=== PATIENT | male | born 1990 | race Caucasian/White ===

== ENCOUNTER 2021-03-10 | Inpatient (IN) | payer MEDICAID, SELFPAY ==
[~2021-03-10] VITALS: Ht 182.9 cm; Wt 77.3 kg
[2021-03-10] MEDS ORDERED: diphenhydrAMINE 50MG/ML VIAL (J1200) IM STA (00:22)
[2021-03-10] MEDS ORDERED: HALOPERIDOL 5MG/ML VIAL (J1630 PER 1) IM STA (00:22)
[2021-03-10] MEDS ORDERED: LORazepam 2 MG/ML VIAL IM STA (00:22)
[2021-03-10] MEDS ORDERED: HALOPERIDOL 5MG/ML VIAL (J1630 PER 1) As Ordered ONE (00:23)
[2021-03-10] MEDS ORDERED: diphenhydrAMINE 50MG/ML VIAL (J1200) As Ordered ONE (00:23)
[2021-03-10] MEDS ORDERED: LORazepam 2 MG/ML VIAL As Ordered ONE (00:24)
[2021-03-10 00:58] LABS: HEMATOCRIT 44.1 % (42.0-52.0); HEMOGLOBIN 14.9 g/dl (13.5-17.5); MEAN CORPUSCULAR HEMOGLOBIN 30.5 pg (27.0-33.0); MEAN CORPUSCULAR HGB CONC 33.8 g/dl (32.0-36.5); MEAN CORPUSCULAR VOLUME 90.4 fl (80.0-96.0); PLATELET COUNT, AUTOMATED 375 10^3/uL (150-450); RED BLOOD COUNT 4.88 10^6/uL (4.30-6.10); WHITE BLOOD COUNT 14.8 10^3/uL (4.0-10.0)
[2021-03-10 01:30] LABS: ACETAMINOPHEN LEVEL < 2.0 UG/ML (10.0-30.0); ALBUMIN 4.7 GM/DL (3.2-5.2); ALT/SGPT 44 U/L (12-78); BILIRUBIN,DIRECT < 0.1 MG/DL (0.0-0.2); BILIRUBIN,TOTAL 0.3 MG/DL (0.2-1.0); BLOOD UREA NITROGEN 12 MG/DL (7-18); CALCIUM LEVEL 9.9 MG/DL (8.5-10.1); CARBON DIOXIDE LEVEL 26 MEQ/L (21-32); CHLORIDE LEVEL 96 MEQ/L (98-107); CREATININE FOR GFR 0.94 MG/DL (0.70-1.30); ETHYL ALCOHOL (ETHANOL) 0.265 % (0.000-0.010); GLOMERULAR FILTRATION RATE > 60.0 (>60); GLUCOSE, FASTING 112 MG/DL (70-100); POTASSIUM SERUM 3.7 MEQ/L (3.5-5.1); SALICYLATE LEVEL < 1.7 MG/DL (5.0-30.0); SODIUM LEVEL 133 MEQ/L (136-145); TOTAL PROTEIN 8.2 GM/DL (6.4-8.2)
[2021-03-10 02:16] LABS: RSV AMPLIFICATION NEGATIVE (NEGATIVE)
[2021-03-10 05:50] LABS: AMPHETAMINES LEVEL URINE NEGATIVE (NEGATIVE); BARBITURATES URINE NEGATIVE (NEGATIVE); BENZODIAZEPINES URINE NEGATIVE (NEGATIVE); CANNABINOIDS URINE NEGATIVE (NEGATIVE); COCAINE METABOLITE URINE NEGATIVE (NEGATIVE); METHADONE URINE NEGATIVE (NEGATIVE); OPIATES URINE NEGATIVE (NEGATIVE); PHENCYCLIDINE URINE NEGATIVE (NEGATIVE)
[2021-03-10] MEDS ORDERED: LORazepam 2 MG TAB PO PRN (15:55)
[2021-03-10] MEDS ORDERED: MAALOX 30 ML SUSP *UDC PO PRN (15:55)
[2021-03-10] MEDS ORDERED: MOM 30ML SUSPENSION UDC PO PRN (15:55)
[2021-03-10] MEDS ORDERED: HOME MED LIST COMPLETE! XX SCH (16:50)
[2021-03-10 17:12] VITALS: BP 135/79
[2021-03-10] MEDS: FOLIC ACID 1 MG TAB PO SCH (17:53)
[2021-03-10] MEDS: MULTIVITAMINS/MINERALS THERAP 1 TAB PO SCH (17:54)
[2021-03-10] MEDS: THIAMINE 100 MG TAB PO SCH (18:09)
[2021-03-10 20:57] VITALS: BP 135/79
[2021-03-10] MEDS: traZODone 50 MG TAB PO PRN (21:14)
[2021-03-11 06:10] VITALS: BP 122/57
[2021-03-11 06:14] VITALS: BP 122/57
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
[2021-03-11] MEDS: MULTIVITAMINS/MINERALS THERAP 1 TAB PO SCH (10:48)
[2021-03-11] MEDS: FOLIC ACID 1 MG TAB PO SCH (10:48)
[2021-03-11] MEDS: THIAMINE 100 MG TAB PO SCH ×2 (10:48→20:14)
[2021-03-11] MEDS: NICOTINE 21MG/24HR 1 EA TRANSDERMAL TD PRN (14:37)
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
[2021-03-11 18:00] VITALS: BP 125/78
[2021-03-11] MEDS: traZODone 50 MG TAB PO PRN (20:14)
[2021-03-11] MEDS: SERTRALINE HCL 25 MG TABLET PO SCH (20:14)
[2021-03-11] MEDS: ACETAMINOPHEN TAB 650MG DOSE (2X325MG) PO PRN (20:15)
[2021-03-12 06:24] VITALS: BP 127/71
[2021-03-12] MEDS: FOLIC ACID 1 MG TAB PO SCH (09:08)
[2021-03-12] MEDS: MULTIVITAMINS/MINERALS THERAP 1 TAB PO SCH (09:09)
[2021-03-12] MEDS: THIAMINE 100 MG TAB PO SCH ×2 (09:09→20:16)
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
[2021-03-12] MEDS: NICOTINE 21MG/24HR 1 EA TRANSDERMAL TD PRN (11:27)
[2021-03-12] MEDS: hydrOXYzine 50 MG TAB PO PRN ×2 (12:43→20:15)
[2021-03-12] MEDS: QUEtiapine FUMARATE 100 MG TAB PO PRN (20:15)
[2021-03-12] MEDS: SERTRALINE HCL 25 MG TABLET PO SCH (20:15)
[2021-03-12] MEDS: ACETAMINOPHEN TAB 650MG DOSE (2X325MG) PO PRN (20:18)
[2021-03-12 20:34] VITALS: BP 139/77
[2021-03-13 06:00] VITALS: BP 116/69
[2021-03-13] MEDS: NICOTINE 21MG/24HR 1 EA TRANSDERMAL TD PRN (12:52)
[2021-03-13] MEDS: hydrOXYzine 50 MG TAB PO PRN (12:52)
[2021-03-13] MEDS: ACETAMINOPHEN TAB 650MG DOSE (2X325MG) PO PRN (17:51)
[2021-03-13 18:00] VITALS: BP 131/60
[2021-03-13] MEDS: SERTRALINE HCL 25 MG TABLET PO SCH (20:19)
[2021-03-13] MEDS: QUEtiapine FUMARATE 100 MG TAB PO PRN (20:19)
--- NOTE | 2021-03-13 22:24 | MHIPNPDOC ---
[facility] Progress Note Progress Note DATE OF SERVICE: 03/13/21 HISTORY: Patient is a 30 -year-old Single, Unemployed, , male, who is admitted for his suicidal ideation and planning to crash his car into a tree. He endorses depression and suicidal thoughts. He reports recent stressors of losing his job, breaking up with his girlfriend 3 days ago and has been couch surfing with friends since then. He also admits to significant alcohol use. States he drinks at least a 15 pack of beer daily. If not beer he drinks half to a full bottle of whiskey daily. Patient reports financial stressors, limited to no supports growing up and currently, struggling with depression and suicidal ideations most of his life. Patient is hopeful for referral to rehab and is requesting a financial reporting analyst for establishing insurance for himself PER ED REPORT: Pt self-presented to the ED intoxicated, reporting "I shouldn't be here that would make it better for everyone else" and was complaining of "not feeling like himself." Pt reports he "was feeling pretty down and I guess suicidal yesterday" which is what prompted him to come to the ED. Pt reports "bojessiee is just delia ruining my life" reporting that he is an alcoholic and has been drinking 15 plus beers or 1/2-1 bottle of liquor daily for 5+ years. Pt reports drinking affects his sleep and appetite, stating he doesn't eat when he drinks and is unable to sleep if he is not drinking. Pt also reports his mood is down, energy is low, and he lacks interests and enjoyment. Pt reports his drinking has led him to recently lose his [employer] job leading to financial stressors. Pt reports he had a gf for 9 months he was residing with but that they recently broke up, and pt. is now couch surfing at different friends houses. Pt states he and his ex gf are both alcoholics, therefore they fought often. Pt reports he has always felt lonely and had minimal support, as pt. was in the foster system until he was old enough to age out. Pt reports he was also often sent to residential facilities while in foster care due to his behaviors. Pt reports no self-harm/hi/ah/vh. Pt reports he's been struggling with s/i on and off all of his life but that he recently has had increasing suicidal thoughts for a few months now. Pt reports the thoughts were the worst yesterday and pt. reports he is still feeling suicidal with a plan to crash his vehicle into a tree going 90mph. Pt reports he is an alcohol and that he drinks every night, sometimes starting drinking earlier in the day. Pt reports he drinks 15 or more beers a day or night, and states if he is drinking liquor instead, he consumes 1/2 to 1 whole bottle of liquor. Pt reports he has been drinking like this for over 5 years. He reports he's been to detox and treatment at [facility] before but several years ago as a teenager. Pt reports a Hx of recreational drug abuse including opioids but denies any recent use, stating he hasn't used in several years. Pt's toxicology report was negative, corroborating pt.s statement. Pt has an apartment with his gf, however pt. reports he has recently been couch surfing at friends, because during their last argument, pt. reports his s/o told him to leave, so pt. left and has not returned. INTERVAL HISTORY: Denies complaints today. Seen in his room laying in bed, reading a book. Did note that 50mg of hydroxyzine seemed too potent after he took it in the morning and that he was struggling with staying awake for the first half of the day. Otherwise feels that his medication changes have been good and feels that he needs no other changes than a lower dose of hydroxyzine PRN. VITAL SIGNS: See below. NEW TEST RESULTS: None CURRENT MEDICATIONS: See below. MENTAL STATUS EXAMINATION: Patient is a 30 -year-old Single, Unemployed, , male, who is admitted for his suicidal ideation and planning to crash his car into a tree. He endorses depression and suicidal thoughts. He reports recent stressors of losing his job, breaking up with his girlfriend 3 days ago and has been couch surfing with friends since then General Appearance: unkempt, disheveled, hospital scrubs/clothing Build: average Demeanor: neutral/calm Eye Contact: fair Activity: relaxed Behavior: cooperative, withdrawn Speech: slow, low in volume Mood: depressed, anxious Affect: flat Thought Process: logical/linear Thought Content (Delusions): none reported Thought Content (Other): none reported Thought Content (Aggressive): none reported Perception (Hallucinations): none reported Perception (Other): none reported Cognition (Impairment of): none reported Cognition(Intelligence Est.): average Oriented: Awake, Alert, Oriented times three Insight: fair Judgment: Fair Psychosis: Denies DIAGNOSES: Major depressive disorder, single episode, moderate Alcohol use disorder, severe Nicotine use disorder History of stimulant use Cannabis use disorder History of methamphetamine use disorder ASSESSMENT: Denies any withdrawal symptoms but states that initial dose of hydroxyzine was too strong. Requests a lower dose but feels that other changes previously made have worked well for his sleep. MANAGEMENT PLAN: PRN hydroxyzine decreased to 25mg TIME SPENT: 15 minutes. Vital Signs Vital Signs Date Time Temp Pulse Resp B/P (MAP) Pulse Ox O2 Delivery O2 Flow Rate FiO2 03/13/21 18:00 97.9 72 16 131/60 (83) 03/13/21 08:55 Room Air 03/13/21 06:00 97 03/12/21 09:41 3.0 Current Medications Current Medications Medications (Trade) Dose Ordered Sig/Tony Route PRN Reason Start Time Stop Time Status Last Admin Dose Admin Acetaminophen (Tylenol Tab) 650 mg Q6HP PRN PO HEADACHE or MILD DISCOMFORT 03/10/21 15:55 03/13/21 17:51 Al Hydrox/Mg Hydrox/Simethicone (Mylanta) 30 ml Q4HP PRN PO HEARTBURN/INDIGESTION 03/10/21 15:55 Diphenhydramine HCl (Benadryl) 50 mg STAT STAT IM 03/10/21 00:22 03/10/21 00:24 DC 03/10/21 00:38 Folic Acid (Folic Acid) 1 mg DAILY PO 03/10/21 09:00 03/13/21 01:08 DC 03/12/21 09:08 Haloperidol (Haldol) 5 mg STAT STAT IM 03/10/21 00:22 03/10/21 00:24 DC 03/10/21 00:37 Home Med (Home Med List Complete!) ASDIRECTED XX 03/10/21 16:50 03/10/21 16:49 DC Hydroxyzine HCl (Atarax) 25 mg Q6HP PRN PO ANXIETY/AGITATION 03/13/21 16:15 Hydroxyzine HCl (Atarax) 50 mg Q6HP PRN PO ANXIETY/AGITATION 03/11/21 09:10 03/13/21 16:13 DC 03/13/21 12:52 Lorazepam (Ativan) 2 mg ASDIRECTED PRN PO SEE PROTOCOL 03/10/21 15:55 Cancel Lorazepam (Ativan) 2 mg STAT STAT IM 03/10/21 00:22 03/10/21 00:24 DC 03/10/21 00:38 Magnesium Hydroxide (Milk Of Magnesia) 30 ml DAILYPRN PRN PO CONSTIPATION 03/10/21 15:55 Multivitamins (Theragram-M) 1 tab DAILY PO 03/10/21 09:00 03/13/21 01:08 DC 03/12/21 09:09 Nicotine (Nicoderm Cq 21mg) 1 patch DAILYPRN PRN TD NICOTINE WITHDRAWAL 03/11/21 09:10 03/13/21 12:52 Quetiapine Fumarate (SEROquel) 100 mg QHSP PRN PO INSOMNIA 03/12/21 10:45 03/13/21 20:19 Sertraline HCl (Zoloft) 25 mg QHS PO 03/11/21 21:00 03/13/21 20:19 Thiamine HCl (Thiamine HCl) 100 mg BID PO 03/10/21 17:00 03/13/21 01:08 DC 03/12/21 20:16 Trazodone HCl (Desyrel) 50 mg QHSP PRN PO INSOMNIA 03/10/21 15:55 03/12/21 10:44 DC 03/11/21 20:14 Allergies Coded Allergies: No Known Allergies (Unverified , 03/10/21) JACOB PAULINO MD Mar 13, 2021 22:24
[2021-03-14 06:43] VITALS: BP 114/70
--- NOTE | 2021-03-14 12:10 | MHIPNPDOC ---
[facility] Progress Note Progress Note DATE OF SERVICE: 03/14/21 HISTORY: Patient is a 30 -year-old Single, Unemployed, , male, who is admitted for his suicidal ideation and planning to crash his car into a tree. He endorses depression and suicidal thoughts. He reports recent stressors of losing his job, breaking up with his girlfriend 3 days ago and has been couch surfing with friends since then. He also admits to significant alcohol use. States he drinks at least a 15 pack of beer daily. If not beer he drinks half to a full bottle of whiskey daily. Patient reports financial stressors, limited to no supports growing up and currently, struggling with depression and suicidal ideations most of his life. Patient is hopeful for referral to rehab and is requesting a financial operations consultant for establishing insurance for himself PER ED REPORT: Pt self-presented to the ED intoxicated, reporting "I shouldn't be here that would make it better for everyone else" and was complaining of "not feeling like himself." Pt reports he "was feeling pretty down and I guess suicidal yesterday" which is what prompted him to come to the ED. Pt reports "bojessiee is just delia ruining my life" reporting that he is an alcoholic and has been drinking 15 plus beers or 1/2-1 bottle of liquor daily for 5+ years. Pt reports drinking affects his sleep and appetite, stating he doesn't eat when he drinks and is unable to sleep if he is not drinking. Pt also reports his mood is down, energy is low, and he lacks interests and enjoyment. Pt reports his drinking has led him to recently lose his [employer] job leading to financial stressors. Pt reports he had a gf for 9 months he was residing with but that they recently broke up, and pt. is now couch surfing at different friends houses. Pt states he and his ex gf are both alcoholics, therefore they fought often. Pt reports he has always felt lonely and had minimal support, as pt. was in the foster system until he was old enough to age out. Pt reports he was also often sent to residential facilities while in foster care due to his behaviors. Pt reports no self-harm/hi/ah/vh. Pt reports he's been struggling with s/i on and off all of his life but that he recently has had increasing suicidal thoughts for a few months now. Pt reports the thoughts were the worst yesterday and pt. reports he is still feeling suicidal with a plan to crash his vehicle into a tree going 90mph. Pt reports he is an alcohol and that he drinks every night, sometimes starting drinking earlier in the day. Pt reports he drinks 15 or more beers a day or night, and states if he is drinking liquor instead, he consumes 1/2 to 1 whole bottle of liquor. Pt reports he has been drinking like this for over 5 years. He reports he's been to detox and treatment at [facility] before but several years ago as a teenager. Pt reports a Hx of recreational drug abuse including opioids but denies any recent use, stating he hasn't used in several years. Pt's toxicology report was negative, corroborating pt.s statement. Pt has an apartment with his gf, however pt. reports he has recently been couch surfing at friends, because during their last argument, pt. reports his s/o told him to leave, so pt. left and has not returned. INTERVAL HISTORY: Laying in bed resting today, woke up early when spoken to. No complaints at this time, however has not utilized the lower dose of hydroxyzine. Provide education to him about this to reinforce the idea that if he needed it the dose below her that we would see if this resolves his anxiety or of an alternative agent be needed VITAL SIGNS: See below. NEW TEST RESULTS: None CURRENT MEDICATIONS: See below. MENTAL STATUS EXAMINATION: Patient is a 30 -year-old Single, Unemployed, , male, who is admitted for his suicidal ideation and planning to crash his car into a tree. He endorses depression and suicidal thoughts. He reports recent stressors of losing his job, breaking up with his girlfriend 3 days ago and has been couch surfing with friends since then General Appearance: unkempt, disheveled, hospital scrubs/clothing Build: average Demeanor: neutral/calm Eye Contact: fair Activity: relaxed Behavior: cooperative, withdrawn Speech: slow, low in volume Mood: depressed, anxious Affect: flat Thought Process: logical/linear Thought Content (Delusions): none reported Thought Content (Other): none reported Thought Content (Aggressive): none reported Perception (Hallucinations): none reported Perception (Other): none reported Cognition (Impairment of): none reported Cognition(Intelligence Est.): average Oriented: Awake, Alert, Oriented times three Insight: fair Judgment: Fair Psychosis: Denies DIAGNOSES: Major depressive disorder, single episode, moderate Alcohol use disorder, severe Nicotine use disorder History of stimulant use Cannabis use disorder History of methamphetamine use disorder ASSESSMENT: Denies any issues medications at this time, however has not utilized the lower dose of hydroxyzine. Provide education to him about the change in medication dosing reminded him that if it was needed he would be able to utilize it if he felt anxious. Otherwise denies any complaints and felt that he was stable at this time. MANAGEMENT PLAN: Continue current medications. Continue discharge planning. TIME SPENT: 10 minutes. Vital Signs Vital Signs Date Time Temp Pulse Resp B/P (MAP) Pulse Ox O2 Delivery O2 Flow Rate FiO2 03/14/21 10:16 Room Air 03/14/21 06:43 98.0 77 16 114/70 (85) 99 03/12/21 09:41 3.0 Current Medications Current Medications Medications (Trade) Dose Ordered Sig/Tony Route PRN Reason Start Time Stop Time Status Last Admin Dose Admin Acetaminophen (Tylenol Tab) 650 mg Q6HP PRN PO HEADACHE or MILD DISCOMFORT 03/10/21 15:55 03/13/21 17:51 Al Hydrox/Mg Hydrox/Simethicone (Mylanta) 30 ml Q4HP PRN PO HEARTBURN/INDIGESTION 03/10/21 15:55 Diphenhydramine HCl (Benadryl) 50 mg STAT STAT IM 03/10/21 00:22 03/10/21 00:24 DC 03/10/21 00:38 Folic Acid (Folic Acid) 1 mg DAILY PO 03/10/21 09:00 03/13/21 01:08 DC 03/12/21 09:08 Haloperidol (Haldol) 5 mg STAT STAT IM 03/10/21 00:22 03/10/21 00:24 DC 03/10/21 00:37 Home Med (Home Med List Complete!) ASDIRECTED XX 03/10/21 16:50 03/10/21 16:49 DC Hydroxyzine HCl (Atarax) 25 mg Q6HP PRN PO ANXIETY/AGITATION 03/13/21 16:15 Hydroxyzine HCl (Atarax) 50 mg Q6HP PRN PO ANXIETY/AGITATION 03/11/21 09:10 03/13/21 16:13 DC 03/13/21 12:52 Lorazepam (Ativan) 2 mg ASDIRECTED PRN PO SEE PROTOCOL 03/10/21 15:55 Cancel Lorazepam (Ativan) 2 mg STAT STAT IM 03/10/21 00:22 03/10/21 00:24 DC 03/10/21 00:38 Magnesium Hydroxide (Milk Of Magnesia) 30 ml DAILYPRN PRN PO CONSTIPATION 03/10/21 15:55 Multivitamins (Theragram-M) 1 tab DAILY PO 03/10/21 09:00 03/13/21 01:08 DC 03/12/21 09:09 Nicotine (Nicoderm Cq 21mg) 1 patch DAILYPRN PRN TD NICOTINE WITHDRAWAL 03/11/21 09:10 03/13/21 12:52 Quetiapine Fumarate (SEROquel) 100 mg QHSP PRN PO INSOMNIA 03/12/21 10:45 03/13/21 20:19 Sertraline HCl (Zoloft) 25 mg QHS PO 03/11/21 21:00 03/13/21 20:19 Thiamine HCl (Thiamine HCl) 100 mg BID PO 03/10/21 17:00 03/13/21 01:08 DC 03/12/21 20:16 Trazodone HCl (Desyrel) 50 mg QHSP PRN PO INSOMNIA 03/10/21 15:55 03/12/21 10:44 DC 03/11/21 20:14 Allergies Coded Allergies: No Known Allergies (Unverified , 03/10/21) JACOB PAULINO MD Mar 14, 2021 12:10
[2021-03-14] MEDS ORDERED: ANALGESIC BALM CRM 3OZ TOP PRN (12:35)
[2021-03-14] MEDS: NICOTINE 21MG/24HR 1 EA TRANSDERMAL TD PRN (12:41)
[2021-03-14] MEDS: hydrOXYzine 25 MG TAB PO PRN ×2 (12:42→23:01)
[2021-03-14] MEDS: IBUPROFEN 600MG TAB PO PRN ×2 (14:04→20:14)
[2021-03-14 18:54] VITALS: BP 116/75
[2021-03-14] MEDS: QUEtiapine FUMARATE 100 MG TAB PO PRN (20:12)
[2021-03-14] MEDS: SERTRALINE HCL 25 MG TABLET PO SCH (20:12)
[2021-03-15 06:43] VITALS: BP 104/53
[2021-03-15] MEDS: IBUPROFEN 600MG TAB PO PRN ×2 (11:38→20:16)
[2021-03-15] MEDS: NICOTINE 21MG/24HR 1 EA TRANSDERMAL TD PRN (11:38)
--- NOTE | 2021-03-15 12:57 | MHIPNPDOC ---
[facility] Progress Note Progress Note DATE OF SERVICE: 03/15/21 HISTORY: Patient is a 30 -year-old Single, Unemployed, , male, who is admitted for his suicidal ideation and planning to crash his car into a tree. He endorses depression and suicidal thoughts. He reports recent stressors of losing his job, breaking up with his girlfriend 3 days ago and has been couch surfing with friends since then. He also admits to significant alcohol use. States he drinks at least a 15 pack of beer daily. If not beer he drinks half to a full bottle of whiskey daily. Patient reports financial stressors, limited to no supports growing up and currently, struggling with depression and suicidal ideations most of his life. Patient is hopeful for referral to rehab and is requesting a financial economist for establishing insurance for himself PER ED REPORT: Pt self-presented to the ED intoxicated, reporting "I shouldn't be here that would make it better for everyone else" and was complaining of "not feeling like himself." Pt reports he "was feeling pretty down and I guess suicidal yesterday" which is what prompted him to come to the ED. Pt reports "bojessiee is just delia ruining my life" reporting that he is an alcoholic and has been drinking 15 plus beers or 1/2-1 bottle of liquor daily for 5+ years. Pt reports drinking affects his sleep and appetite, stating he doesn't eat when he drinks and is unable to sleep if he is not drinking. Pt also reports his mood is down, energy is low, and he lacks interests and enjoyment. Pt reports his drinking has led him to recently lose his [employer] job leading to financial stressors. Pt reports he had a gf for 9 months he was residing with but that they recently broke up, and pt. is now couch surfing at different friends houses. Pt states he and his ex gf are both alcoholics, therefore they fought often. Pt reports he has always felt lonely and had minimal support, as pt. was in the foster system until he was old enough to age out. Pt reports he was also often sent to residential facilities while in foster care due to his behaviors. Pt reports no self-harm/hi/ah/vh. Pt reports he's been struggling with s/i on and off all of his life but that he recently has had increasing suicidal thoughts for a few months now. Pt reports the thoughts were the worst yesterday and pt. reports he is still feeling suicidal with a plan to crash his vehicle into a tree going 90mph. Pt reports he is an alcohol and that he drinks every night, sometimes starting drinking earlier in the day. Pt reports he drinks 15 or more beers a day or night, and states if he is drinking liquor instead, he consumes 1/2 to 1 whole bottle of liquor. Pt reports he has been drinking like this for over 5 years. He reports he's been to detox and treatment at [facility] before but several years ago as a teenager. Pt reports a Hx of recreational drug abuse including opioids but denies any recent use, stating he hasn't used in several years. Pt's toxicology report was negative, corroborating pt.s statement. Pt has an apartment with his gf, however pt. reports he has recently been couch surfing at friends, because during their last argument, pt. reports his s/o told him to leave, so pt. left and has not returned. VITAL SIGNS: See below. NEW TEST RESULTS: None CURRENT MEDICATIONS: See below. MENTAL STATUS EXAMINATION: Patient is a 30 -year-old Single, Unemployed, , male, who is admitted for his suicidal ideation and planning to crash his car into a tree. He endorses depression and suicidal thoughts. He reports recent stressors of losing his job, breaking up with his girlfriend 3 days ago and has been couch surfing with friends since then General Appearance: well kempt, hospital scrubs/clothing Build: average Demeanor: withdrawn, guarded Eye Contact: fair Activity: anxious Behavior: cooperative, withdrawn Speech: Normal rate tone and volume Mood: depressed, minimally anxious Affect: flat Thought Process: logical/linear Thought Content (Delusions): none reported Thought Content (Other): none reported Thought Content (Aggressive): none reported Perception (Hallucinations): none reported Perception (Other): none reported Cognition (Impairment of): none reported Cognition(Intelligence Est.): average Oriented: Awake, Alert, Oriented times three Insight: fair Judgment: Fair Psychosis: Denies DIAGNOSES: Major depressive disorder, single episode, moderate Alcohol use disorder, severe Nicotine use disorder History of stimulant use Cannabis use disorder History of methamphetamine use disorder ASSESSMENT: Found sleeping in his room. Reports no withdrawal symptoms, has mild depression and anxiety. States that his sleep has not improved and that the hydroxyzine was lowered and was effective. He had previously reported that this was oversedating. He has been withdrawn and not participating in groups, states that it is too much fellowship for him. He denies any side affects or adverse reactions to any medications. He states that he wants to go door to door to rehab but appears to be getting very anxious about staying. He is not requesting anything more. We discussed rehabs, he is requesting to go to [facility] as he lives nearby. Reinforced that availability vs optimal treatment centers is nothing that the financial planner can guarantee. He is reading books in his room. MANAGEMENT PLAN: Discontinued Trazodone 50 mg and ordered Seroquel 100 mg HS for sleep TIME SPENT: 25 minutes. Vital Signs Vital Signs Date Time Temp Pulse Resp B/P (MAP) Pulse Ox O2 Delivery O2 Flow Rate FiO2 03/15/21 09:37 Room Air 03/15/21 06:43 98.5 66 20 104/53 (70) 95 03/12/21 09:41 3.0 Current Medications Current Medications Medications (Trade) Dose Ordered Sig/Tony Route PRN Reason Start Time Stop Time Status Last Admin Dose Admin Acetaminophen (Tylenol Tab) 650 mg Q6HP PRN PO HEADACHE or MILD DISCOMFORT 03/10/21 15:55 03/13/21 17:51 Al Hydrox/Mg Hydrox/Simethicone (Mylanta) 30 ml Q4HP PRN PO HEARTBURN/INDIGESTION 03/10/21 15:55 Diphenhydramine HCl (Benadryl) 50 mg STAT STAT IM 03/10/21 00:22 03/10/21 00:24 DC 03/10/21 00:38 Folic Acid (Folic Acid) 1 mg DAILY PO 03/10/21 09:00 03/13/21 01:08 DC 03/12/21 09:08 Haloperidol (Haldol) 5 mg STAT STAT IM 03/10/21 00:22 03/10/21 00:24 DC 03/10/21 00:37 Home Med (Home Med List Complete!) ASDIRECTED XX 03/10/21 16:50 03/10/21 16:49 DC Hydroxyzine HCl (Atarax) 25 mg Q6HP PRN PO ANXIETY/AGITATION 03/13/21 16:15 03/14/21 23:01 Hydroxyzine HCl (Atarax) 50 mg Q6HP PRN PO ANXIETY/AGITATION 03/11/21 09:10 03/13/21 16:13 DC 03/13/21 12:52 Ibuprofen (Advil) 600 mg Q6HP PRN PO MODERATE PAIN (PS 5-7) 03/14/21 12:35 03/15/21 11:38 Lorazepam (Ativan) 2 mg ASDIRECTED PRN PO SEE PROTOCOL 03/10/21 15:55 Cancel Lorazepam (Ativan) 2 mg STAT STAT IM 03/10/21 00:22 03/10/21 00:24 DC 03/10/21 00:38 Magnesium Hydroxide (Milk Of Magnesia) 30 ml DAILYPRN PRN PO CONSTIPATION 03/10/21 15:55 Menthol/Methyl Salicylate (Bengay Cream) TIDP PRN TOP knee pain 03/14/21 12:35 Multivitamins (Theragram-M) 1 tab DAILY PO 03/10/21 09:00 03/13/21 01:08 DC 03/12/21 09:09 Nicotine (Nicoderm Cq 21mg) 1 patch DAILYPRN PRN TD NICOTINE WITHDRAWAL 03/11/21 09:10 03/15/21 11:38 Quetiapine Fumarate (SEROquel) 100 mg QHSP PRN PO INSOMNIA 03/12/21 10:45 03/14/21 20:12 Sertraline HCl (Zoloft) 25 mg QHS PO 03/11/21 21:00 03/14/21 20:12 Thiamine HCl (Thiamine HCl) 100 mg BID PO 03/10/21 17:00 03/13/21 01:08 DC 03/12/21 20:16 Trazodone HCl (Desyrel) 50 mg QHSP PRN PO INSOMNIA 03/10/21 15:55 03/12/21 10:44 DC 03/11/21 20:14 Allergies Coded Allergies: No Known Allergies (Unverified , 03/10/21) DAMIR RAJAN NP Mar 15, 2021 12:57
[2021-03-15] MEDS: hydrOXYzine 25 MG TAB PO PRN (14:50)
[2021-03-15 16:30] VITALS: BP 116/68
[2021-03-15] MEDS: QUEtiapine FUMARATE 100 MG TAB PO PRN (20:16)
[2021-03-15] MEDS: SERTRALINE HCL 25 MG TABLET PO SCH (20:16)
[2021-03-16 06:23] VITALS: BP 106/56
[2021-03-16] MEDS: hydrOXYzine 25 MG TAB PO PRN ×2 (07:54→20:22)
[2021-03-16] MEDS: NICOTINE 21MG/24HR 1 EA TRANSDERMAL TD PRN (11:18)
[2021-03-16] MEDS: IBUPROFEN 600MG TAB PO PRN ×2 (11:18→18:00)
--- NOTE | 2021-03-16 13:49 | MHIPNPDOC ---
[facility] Progress Note Progress Note DATE OF SERVICE: 03/16/21 HISTORY:Patient is a 30 -year-old Single, Unemployed, , male, who is admitted for his suicidal ideation and planning to crash his car into a tree. He endorses depression and suicidal thoughts. He reports recent stressors of losing his job, breaking up with his girlfriend 3 days ago and has been couch surfing with friends since then. He also admits to significant alcohol use. States he drinks at least a 15 pack of beer daily. If not beer he drinks half to a full bottle of whiskey daily. Patient reports financial stressors, limited to no supports growing up and currently, struggling with depression and suicidal ideations most of his life. Patient is hopeful for referral to rehab and is requesting a financial manager for establishing insurance for himself PER ED REPORT: Pt self-presented to the ED intoxicated, reporting "I shouldn't be here that would make it better for everyone else" and was complaining of "not feeling like himself." Pt reports he "was feeling pretty down and I guess suicidal yesterday" which is what prompted him to come to the ED. Pt reports "bojessiee is just delia ruining my life" reporting that he is an alcoholic and has been drinking 15 plus beers or 1/2-1 bottle of liquor daily for 5+ years. Pt reports drinking affects his sleep and appetite, stating he doesn't eat when he drinks and is unable to sleep if he is not drinking. Pt also reports his mood is down, energy is low, and he lacks interests and enjoyment. Pt reports his drinking has led him to recently lose his [employer] job leading to financial stressors. Pt reports he had a gf for 9 months he was residing with but that they recently broke up, and pt. is now couch surfing at different friends houses. Pt states he and his ex gf are both alcoholics, therefore they fought often. Pt reports he has always felt lonely and had minimal support, as pt. was in the foster system until he was old enough to age out. Pt reports he was also often sent to residential facilities while in foster care due to his behaviors. Pt reports no self-harm/hi/ah/vh. Pt reports he's been struggling with s/i on and off all of his life but that he recently has had increasing suicidal thoughts for a few months now. Pt reports the thoughts were the worst yesterday and pt. reports he is still feeling suicidal with a plan to crash his vehicle into a tree going 90mph. Pt reports he is an alcohol and that he drinks every night, sometimes starting drinking earlier in the day. Pt reports he drinks 15 or more beers a day or night, and states if he is drinking liquor instead, he consumes 1/2 to 1 whole bottle of liquor. Pt reports he has been drinking like this for over 5 years. He reports he's been to detox and treatment at [facility] before but several years ago as a teenager. Pt reports a Hx of recreational drug abuse including opioids but denies any recent use, stating he hasn't used in several years. Pt's toxicology report was negative, corroborating pt.s statement. Pt has an apartment with his gf, however pt. reports he has recently been couch surfing at friends, because during their last argument, pt. reports his s/o told him to leave, so pt. left and has not returned. VITAL SIGNS: See below. NEW TEST RESULTS: None CURRENT MEDICATIONS: See below. MENTAL STATUS EXAMINATION: Patient is a 30 -year-old Single, Unemployed, , male, who is admitted for his suicidal ideation and planning to crash his car into a tree. He was admitted for depression and anxiety. Please read today's assessment for further assessment. Speech: Is fluid, conversant, normal rate, tone and volume Language skills are intact Thought processes including: linear and goal oriented Thought content: decreased depression and anxiety. Denies suicidal/homicidal ideation, planning or intent. Abstract reasoning, and computation: fair Description of associations: denies, none observed Description of abnormal or psychotic thoughts: denies, none observed. Judgment: fair Insight: fair Orientation: alert and oriented to person, place, time and situation Recent and remote memory: intact Attention span and concentration: good Language: expansive Fund of knowledge: average Mood: Euthymic Mood Affect: reactive DIAGNOSES: Major depressive disorder, single episode, moderate Alcohol use disorder, severe Nicotine use disorder History of stimulant use Cannabis use disorder History of methamphetamine use disorder ASSESSMENT: Patient is reporting improvement in depressive and anxiety symptoms. He denies suicidal ideations, reports that his depression and anxiety is mild today. States that he continues to have delayed drowsiness with Seroquel. Discussed the medications being increased. He is agreeable to Seroquel 125 mg PRN HS for insomnia. He appeared very motivated today to get into a Treatment Facility although is hopeful that he gets into one where he has local supports. He continues to refused groups but is observed to be friendlier with peers. He is less withdrawn and guarded. Patient has had previous rehab treatment and wants to be in [place]. Patient's mood and affect is greatly improved. MANAGEMENT PLAN: Continue all therapies, ordered an increased of Seroquel 125 mg HS for sleep. Discharge treatment facility when available TIME SPENT: 25 minutes. Vital Signs Vital Signs Date Time Temp Pulse Resp B/P (MAP) Pulse Ox O2 Delivery O2 Flow Rate FiO2 03/16/21 06:23 98.7 62 20 106/56 (73) 96 Room Air 03/12/21 09:41 3.0 Current Medications Current Medications Medications (Trade) Dose Ordered Sig/Tony Route PRN Reason Start Time Stop Time Status Last Admin Dose Admin Acetaminophen (Tylenol Tab) 650 mg Q6HP PRN PO HEADACHE or MILD DISCOMFORT 03/10/21 15:55 03/13/21 17:51 Al Hydrox/Mg Hydrox/Simethicone (Mylanta) 30 ml Q4HP PRN PO HEARTBURN/INDIGESTION 03/10/21 15:55 Diphenhydramine HCl (Benadryl) 50 mg STAT STAT IM 03/10/21 00:22 03/10/21 00:24 DC 03/10/21 00:38 Folic Acid (Folic Acid) 1 mg DAILY PO 03/10/21 09:00 03/13/21 01:08 DC 03/12/21 09:08 Haloperidol (Haldol) 5 mg STAT STAT IM 03/10/21 00:22 03/10/21 00:24 DC 03/10/21 00:37 Home Med (Home Med List Complete!) ASDIRECTED XX 03/10/21 16:50 03/10/21 16:49 DC Hydroxyzine HCl (Atarax) 25 mg Q6HP PRN PO ANXIETY/AGITATION 03/13/21 16:15 03/16/21 07:54 Hydroxyzine HCl (Atarax) 50 mg Q6HP PRN PO ANXIETY/AGITATION 03/11/21 09:10 03/13/21 16:13 DC 03/13/21 12:52 Ibuprofen (Advil) 600 mg Q6HP PRN PO MODERATE PAIN (PS 5-7) 03/14/21 12:35 03/16/21 11:18 Lorazepam (Ativan) 2 mg ASDIRECTED PRN PO SEE PROTOCOL 03/10/21 15:55 Cancel Lorazepam (Ativan) 2 mg STAT STAT IM 03/10/21 00:22 03/10/21 00:24 DC 03/10/21 00:38 Magnesium Hydroxide (Milk Of Magnesia) 30 ml DAILYPRN PRN PO CONSTIPATION 03/10/21 15:55 Menthol/Methyl Salicylate (Bengay Cream) TIDP PRN TOP knee pain 03/14/21 12:35 Multivitamins (Theragram-M) 1 tab DAILY PO 03/10/21 09:00 03/13/21 01:08 DC 03/12/21 09:09 Nicotine (Nicoderm Cq 21mg) 1 patch DAILYPRN PRN TD NICOTINE WITHDRAWAL 03/11/21 09:10 03/16/21 11:18 Quetiapine Fumarate (SEROquel) 100 mg QHSP PRN PO INSOMNIA 03/12/21 10:45 03/15/21 20:16 Sertraline HCl (Zoloft) 25 mg QHS PO 03/11/21 21:00 03/15/21 20:16 Thiamine HCl (Thiamine HCl) 100 mg BID PO 03/10/21 17:00 03/13/21 01:08 DC 03/12/21 20:16 Trazodone HCl (Desyrel) 50 mg QHSP PRN PO INSOMNIA 03/10/21 15:55 03/12/21 10:44 DC 03/11/21 20:14 Allergies Coded Allergies: No Known Allergies (Unverified , 03/10/21) DAMIR RAJAN NP Mar 16, 2021 11:24
[2021-03-16] MEDS: ACETAMINOPHEN TAB 650MG DOSE (2X325MG) PO PRN (15:57)
[2021-03-16 16:15] VITALS: BP 132/62
[2021-03-16] MEDS: QUEtiapine FUMARATE 25 MG TAB PO PRN (20:22)
[2021-03-16] MEDS: QUEtiapine FUMARATE 100 MG TAB PO PRN (20:22)
[2021-03-16] MEDS: SERTRALINE HCL 25 MG TABLET PO SCH (20:22)
[2021-03-17 06:12] VITALS: BP 107/53
[2021-03-17] MEDS: IBUPROFEN 600MG TAB PO PRN ×3 (08:31→21:21)
[2021-03-17] MEDS: hydrOXYzine 25 MG TAB PO PRN ×2 (08:32→15:12)
--- NOTE | 2021-03-17 12:08 | MHIPNPDOC ---
[facility] Progress Note Progress Note DATE OF SERVICE: 03/17/21 HISTORY: Patient is a 30 -year-old Single, Unemployed, , male, who is admitted for his suicidal ideation and planning to crash his car into a tree. He endorses depression and suicidal thoughts. He reports recent stressors of losing his job, breaking up with his girlfriend 3 days ago and has been couch surfing with friends since then. He also admits to significant alcohol use. States he drinks at least a 15 pack of beer daily. If not beer he drinks half to a full bottle of whiskey daily. Patient reports financial stressors, limited to no supports growing up and currently, struggling with depression and suicidal ideations most of his life. Patient is hopeful for referral to rehab and is requesting a financial services associate for establishing insurance for himself PER ED REPORT: Pt self-presented to the ED intoxicated, reporting "I shouldn't be here that would make it better for everyone else" and was complaining of "not feeling like himself." Pt reports he "was feeling pretty down and I guess suicidal yesterday" which is what prompted him to come to the ED. Pt reports "bojessiee is just delia ruining my life" reporting that he is an alcoholic and has been drinking 15 plus beers or 1/2-1 bottle of liquor daily for 5+ years. Pt reports drinking affects his sleep and appetite, stating he doesn't eat when he drinks and is unable to sleep if he is not drinking. Pt also reports his mood is down, energy is low, and he lacks interests and enjoyment. Pt reports his drinking has led him to recently lose his [employer] job leading to financial stressors. Pt reports he had a gf for 9 months he was residing with but that they recently broke up, and pt. is now couch surfing at different friends houses. Pt states he and his ex gf are both alcoholics, therefore they fought often. Pt reports he has always felt lonely and had minimal support, as pt. was in the foster system until he was old enough to age out. Pt reports he was also often sent to residential facilities while in foster care due to his behaviors. Pt reports no self-harm/hi/ah/vh. Pt reports he's been struggling with s/i on and off all of his life but that he recently has had increasing suicidal thoughts for a few months now. Pt reports the thoughts were the worst yesterday and pt. reports he is still feeling suicidal with a plan to crash his vehicle into a tree going 90mph. Pt reports he is an alcohol and that he drinks every night, sometimes starting drinking earlier in the day. Pt reports he drinks 15 or more beers a day or night, and states if he is drinking liquor instead, he consumes 1/2 to 1 whole bottle of liquor. Pt reports he has been drinking like this for over 5 years. He reports he's been to detox and treatment at [facility] before but several years ago as a teenager. Pt reports a Hx of recreational drug abuse including opioids but denies any recent use, stating he hasn't used in several years. Pt's toxicology report was negative, corroborating pt.s statement. Pt has an apartment with his gf, however pt. reports he has recently been couch surfing at friends, because during their last argument, pt. reports his s/o told him to leave, so pt. left and has not returned. VITAL SIGNS: See below. NEW TEST RESULTS: None CURRENT MEDICATIONS: See below. MENTAL STATUS EXAMINATION: Patient is a 30 -year-old Single, Unemployed, , male, who is admitted for his suicidal ideation and planning to crash his car into a tree. He was admitted for depression and anxiety. Please read today's assessment for further assessment. Speech: Is fluid, conversant, normal rate, tone and volume Language skills are intact Thought processes including: linear and goal oriented Thought content: denies depression and anxiety. Denies suicidal/homicidal ideation, planning or intent. Abstract reasoning, and computation: fair Description of associations: denies, none observed Description of abnormal or psychotic thoughts: denies, none observed. Judgment: fair Insight: fair Orientation: alert and oriented to person, place, time and situation Recent and remote memory: intact Attention span and concentration: good Language: expansive Fund of knowledge: average Mood: Euthymic Mood Affect: reactive DIAGNOSES: Major depressive disorder, single episode, moderate Alcohol use disorder, severe Nicotine use disorder History of stimulant use Cannabis use disorder History of methamphetamine use disorder ASSESSMENT: Patient's mood and affect has improved, feels that he is doing well. Denies depression, anxiety, suicidal or homicidal ideations. He denies and is not observed with any psychotic symptoms. Reports sleeping well, eating well and very satisfied that he is able to go to rehab tomorrow. MANAGEMENT PLAN: Continue all therapies, ordered an increased of Seroquel 125 mg HS for sleep. Discharge to treatment facility tomorrow TIME SPENT: 15 minutes. Vital Signs Vital Signs Date Time Temp Pulse Resp B/P (MAP) Pulse Ox O2 Delivery O2 Flow Rate FiO2 03/17/21 06:12 97.9 68 20 107/53 (71) 96 Room Air 03/12/21 09:41 3.0 Current Medications Current Medications Medications (Trade) Dose Ordered Sig/Tony Route PRN Reason Start Time Stop Time Status Last Admin Dose Admin Acetaminophen (Tylenol Tab) 650 mg Q6HP PRN PO HEADACHE or MILD DISCOMFORT 03/10/21 15:55 03/16/21 15:57 Al Hydrox/Mg Hydrox/Simethicone (Mylanta) 30 ml Q4HP PRN PO HEARTBURN/INDIGESTION 03/10/21 15:55 Diphenhydramine HCl (Benadryl) 50 mg STAT STAT IM 03/10/21 00:22 03/10/21 00:24 DC 03/10/21 00:38 Folic Acid (Folic Acid) 1 mg DAILY PO 03/10/21 09:00 03/13/21 01:08 DC 03/12/21 09:08 Haloperidol (Haldol) 5 mg STAT STAT IM 03/10/21 00:22 03/10/21 00:24 DC 03/10/21 00:37 Home Med (Home Med List Complete!) ASDIRECTED XX 03/10/21 16:50 03/10/21 16:49 DC Hydroxyzine HCl (Atarax) 25 mg Q6HP PRN PO ANXIETY/AGITATION 03/13/21 16:15 03/17/21 08:32 Hydroxyzine HCl (Atarax) 50 mg Q6HP PRN PO ANXIETY/AGITATION 03/11/21 09:10 03/13/21 16:13 DC 03/13/21 12:52 Ibuprofen (Advil) 600 mg Q6HP PRN PO MODERATE PAIN (PS 5-7) 03/14/21 12:35 03/17/21 08:31 Lorazepam (Ativan) 2 mg ASDIRECTED PRN PO SEE PROTOCOL 03/10/21 15:55 Cancel Lorazepam (Ativan) 2 mg STAT STAT IM 03/10/21 00:22 03/10/21 00:24 DC 03/10/21 00:38 Magnesium Hydroxide (Milk Of Magnesia) 30 ml DAILYPRN PRN PO CONSTIPATION 03/10/21 15:55 Menthol/Methyl Salicylate (Bengay Cream) TIDP PRN TOP knee pain 03/14/21 12:35 Multivitamins (Theragram-M) 1 tab DAILY PO 03/10/21 09:00 03/13/21 01:08 DC 03/12/21 09:09 Nicotine (Nicoderm Cq 21mg) 1 patch DAILYPRN PRN TD NICOTINE WITHDRAWAL 03/11/21 09:10 03/16/21 11:18 Quetiapine Fumarate (SEROquel) 25 mg QHSP PRN PO INSOMNIA 03/16/21 13:45 03/16/21 20:22 Quetiapine Fumarate (SEROquel) 100 mg QHSP PRN PO INSOMNIA 03/12/21 10:45 03/16/21 13:38 DC 03/15/21 20:16 Quetiapine Fumarate (SEROquel) 100 mg QHSP PRN PO INSOMNIA 03/16/21 13:40 03/16/21 20:22 Sertraline HCl (Zoloft) 25 mg QHS PO 03/11/21 21:00 03/16/21 20:22 Thiamine HCl (Thiamine HCl) 100 mg BID PO 03/10/21 17:00 03/13/21 01:08 DC 03/12/21 20:16 Trazodone HCl (Desyrel) 50 mg QHSP PRN PO INSOMNIA 03/10/21 15:55 03/12/21 10:44 DC 03/11/21 20:14 Allergies Coded Allergies: No Known Allergies (Unverified , 03/10/21) DAMIR RAJAN NP Mar 17, 2021 12:08
[2021-03-17] MEDS ORDERED: QUET1TAB17 PO (12:14)
[2021-03-17] MEDS ORDERED: NICO21PAT TD (12:14)
[2021-03-17] MEDS ORDERED: SERT-141 PO (12:14)
[2021-03-17] MEDS ORDERED: QUET100T2 PO (12:14)
[2021-03-17] MEDS ORDERED: HYDR-3363 PO (12:14)
[2021-03-17 13:05] LABS: CHOLESTEROL RISK RATIO 3.178 (<5)
[2021-03-17 16:17] VITALS: BP 137/80
[2021-03-17] MEDS: QUEtiapine FUMARATE 25 MG TAB PO PRN (19:58)
[2021-03-17] MEDS: QUEtiapine FUMARATE 100 MG TAB PO PRN (19:58)
[2021-03-17] MEDS ORDERED: SERTRALINE HCL 50 MG TAB PO SCH (21:00)
[2021-03-18 07:12] VITALS: BP 117/68
[2021-03-18] MEDS: hydrOXYzine 25 MG TAB PO PRN (08:16)
[2021-03-18] MEDS: IBUPROFEN 600MG TAB PO PRN (08:17)
[2021-03-18] MEDS: NICOTINE 21MG/24HR 1 EA TRANSDERMAL TD PRN (08:17)
--- NOTE | 2021-03-18 12:11 | MHDSPDOC ---
[facility] Discharge Summary Discharge Summary DATE OF ADMISSION: Mar 10, 2021 at 15:51 DATE OF DISCHARGE: Mar 18, 2021 at 08:28 DISCHARGE DIAGNOSES: Major depressive disorder, single episode, moderate Alcohol use disorder, severe Nicotine use disorder History of stimulant use Cannabis use disorder History of methamphetamine use disorder REASON FOR ADMISSION: Patient is a 30 -year-old Single, Unemployed, , male, who is admitted for his suicidal ideation and planning to crash his car into a tree. He endorses depression and suicidal thoughts. He reports recent stressors of losing his job, breaking up with his girlfriend 3 days ago and has been couch surfing with friends since then. He also admits to significant alcohol use. States he drinks at least a 15 pack of beer daily. If not beer he drinks half to a full bottle of whiskey daily. Patient reports financial stressors, limited to no supports growing up and currently, struggling with depression and suicidal ideations most of his life. Patient is hopeful for referral to rehab and is requesting a financial examiner for establishing insurance for himself PER ED REPORT: Pt self-presented to the ED intoxicated, reporting "I shouldn't be here that would make it better for everyone else" and was complaining of "not feeling like himself." Pt reports he "was feeling pretty down and I guess suicidal yesterday" which is what prompted him to come to the ED. Pt reports "lissette is just delia ruining my life" reporting that he is an alcoholic and has been drinking 15 plus beers or 1/2-1 bottle of liquor daily for 5+ years. Pt reports drinking affects his sleep and appetite, stating he doesn't eat when he drinks and is unable to sleep if he is not drinking. Pt also reports his mood is down, energy is low, and he lacks interests and enjoyment. Pt reports his drinking has led him to recently lose his [employer] job leading to financial stressors. Pt reports he had a gf for 9 months he was residing with but that they recently broke up, and pt. is now couch surfing at different friends houses. Pt states he and his ex gf are both alcoholics, therefore they fought often. Pt reports he has always felt lonely and had minimal support, as pt. was in the foster system until he was old enough to age out. Pt reports he was also often sent to residential facilities while in foster care due to his behaviors. Pt reports no self-harm/hi/ah/vh. Pt reports he's been struggling with s/i on and off all of his life but that he recently has had increasing suicidal thoughts for a few months now. Pt reports the thoughts were the worst yesterday and pt. reports he is still feeling suicidal with a plan to crash his vehicle into a tree going 90mph. Pt reports he is an alcohol and that he drinks every night, sometimes starting drinking earlier in the day. Pt reports he drinks 15 or more beers a day or night, and states if he is drinking liquor instead, he consumes 1/2 to 1 whole bottle of liquor. Pt reports he has been drinking like this for over 5 years. He reports he's been to detox and treatment at [facility] before but several years ago as a teenager. Pt reports a Hx of recreational drug abuse including opioids but denies any recent use, stating he hasn't used in several years. Pt's toxicology report was negative, corroborating pt.s statement. Pt has an apartment with his gf, however pt. reports he has recently been couch surfing at friends, because during their last argument, pt. reports his s/o told him to leave, so pt. left and has not returned. VITAL SIGNS: See below. CONSULTANTS INVOLVED: See Medical H + P by Hospitalist TREATMENT AND PROGRESS ON THE UNIT: Patient was admitted to the [facility] on a 939 legal status was afforded the following treatment modalities: 1) Individual Therapy 2) Group Therapy 3) Medication Management 4) Milieu Therapy 5) Safe Environment HOSPITAL COURSE: Patient was admitted to [facility] on a 9.39 legal status. Patient was admitted for suicidal ideation and planning to crash his car. Patient was st arted on Zoloft but had minor complaints and this remained at 25 mg for short time and eventually increased to 50 mg daily. Patient had complained that trazodone was not effective and he was placed on Seroquel 100 mg. He reported that he had varying results on Seroquel this was titrated to 125 mg and and pt found medications beneficial and tolerated them well. Mood, anxiety, and i ntrusive thoughts improved with treatment. Pt did not attend any groups during stay. Patient was mostly isolative and withdrawn and stated that he was not into group therapy. Reinforced with patient that Substance Rehab treatments most course of treatment was group therapy. Pts symptoms improved with treatment. On day of discharge pt. denied depression, anxiety, insomnia, SI/HI, hallucinations, delusions. Patient was leaving [facility] and being picked up by family and going to [facility]. His medications were electronically sent to the Pharmacy of his choosing. His follow up appointments will be set up by [facility] and he signed release of information for [facility]. . Pt felt safe for discharge. DISCHARGE ASSESSMENT: In today's interview, patient is alert and oriented, pt.s dress is appropriate. Hygiene and grooming is well-kempt. Smiles on approach and is pleasant and engaged in the interview. Denies depression and anxiety. Denies suicidal and homicidal ideation, planning or intent. Denies and is not observed with talat, psychotic symptoms of delusions, bizarre thinking, obsessions, paranoia, ruminations illogical thoughts, flight of ideas or having poor insight and judgement. Reinforced with patient need to abstain from alcohol and drugs. At discharge patient has normal mentation, declines further hospitalization on a voluntary status and meets criteria for discharge today. Discussed indications of medications, potential benefits and risks, alternatives (including no treatment) and questions were encouraged and answered. Patient encouraged to return to hospital if symptoms worsen or change and encouraged to call unit if he/she/they needs to speak to provider for questions regarding medications or care. MENTAL STATUS EXAMINATION ON DISCHARGE: Patient is a 30 -year-old Single, Unemployed, , male, who is admitted for his suicidal ideation and planning to crash his car into a tree. He endorses depression and suicidal thoughts. Speech: Is fluid, conversant, normal rate, tone and volume Language skills are intact Thought processes including: linear and goal oriented Thought content: denies depression and anxiety. Denies suicidal/homicidal ideation, planning or intent. Abstract reasoning, and computation: fair Description of associations: denies, none observed Description of abnormal or psychotic thoughts: denies, none observed. Judgment: fair Insight: fair Orientation: alert and oriented to person, place, time and situation Recent and remote memory: intact Attention span and concentration: good Language: expansive Fund of knowledge: average Mood: Euthymic Mood Affect: reactive Suicide Risk Assessment: 1) Does the patient wish to be ? No 2) Since your admission, have you had any actual thought of killing yourself? No 3) Since your admission, have you been thinking about how you might do this? No 4) Since your admission, have you had these thoughts and had some intention of acting on them? No 5) Since your admission, have you started to work out or worked out the details of how to kill yourself? No 5A) Do you intent to carry out this plan? No and NA 6) Have you ever done anything, started anything, or prepared to do anything with any intent to ? No 6A) How long since your admission did you do any of these? NA MEDICATIONS ON DISCHARGE: See Medication Reconciliation PLAN/FOLLOWUP ARRANGEMENTS: Patient was leaving [facility] and being picked up by family and going to [facility]. His medications were electronically sent to the Pharmacy of his choosing. His follow up appointments will be set up by [facility] and he signed release of information for [facility]. The amount of time spent in the coordination of care for this patient was approximately 25 minutes. ETOH/Disorder Med Rx ETOH/DRUG DISORDER RX: N/A (Patient was discharged and is going [id number] to rehab treatment facility) Vital Signs/I&Os Vital Signs Date Time Temp Pulse Resp B/P (MAP) Pulse Ox O2 Delivery O2 Flow Rate FiO2 03/18/21 07:12 98.2 72 16 117/68 (84) 98 Room Air 03/12/21 09:41 3.0 Laboratory Data Labs 24H Laboratory Tests 2 03/17/21 12:24: Triglycerides Level 145, Total Cholesterol 178, LDL Cholesterol 93, Non-HDL Cholesterol (LDL + VLDL) 122, Total HDL Cholesterol 56, Cholesterol/HDL Ratio 3.178 Medications Scheduled Sertraline Hcl (Sertraline HCl) 50 Mg Tablet, 50 MG PO DAILY for Depression for 7 Days, #7 Scheduled PRN Hydroxyzine HCl (Hydroxyzine HCl) 25 Mg Tablet, 25 MG PO BIDP PRN for ANXIETY/AGITATION, #14 Nicotine (Nicotine Patch) 21 Mg Patch.td24, 1 PATCH TD DAILYPRN PRN for NICOTINE WITHDRAWAL, #7 Quetiapine Fumarate (Quetiapine Fumarate) 25 Mg Tablet, 25 MG PO QHSP PRN for INSOMNIA, #7 Quetiapine Fumarate (Quetiapine Fumarate) 100 Mg Tablet, 100 MG PO QHSP PRN for INSOMNIA, #7 Allergies Coded Allergies: No Known Allergies (Unverified , 03/10/21) DAMIR RAJAN NP Mar 18, 2021 12:11
== END 2021-03-18 08:28 | DRG 751 ==
LOC: M ED → M ED INP 15:51 → M PSY 17:15
PROVIDERS: ADMIT Psychiatry & Neurology Psychiatry; ATTEND Psychiatry & Neurology Psychiatry
DX: F32.1 Major depressive disorder, single episode, moderate (principal); F10.229 Alcohol dependence with intoxication, unspecified; F17.200 Nicotine dependence, unspecified, uncomplicated; F12.10 Cannabis abuse, uncomplicated; F15.10 Other stimulant abuse, uncomplicated; R45.851 Suicidal ideations; Z63.0 Problems in relationship with spouse or partner